=== PATIENT | female | born 1985 | race Caucasian/White ===

== ENCOUNTER 2017-02-26 10:28 | Emergency (ER) | payer OTHER ==
[2017-02-26] MEDS ORDERED: Ondansetron ODT 4 MG TAB ONE (10:45)
[2017-02-26] MEDS ORDERED: Morphine 4 MG/ML Carpuject ONE (11:04)
[2017-02-26] MEDS ORDERED: Promethazine HCl 25 MG/ML VIAL ONE ×2 (11:04→12:03)
[2017-02-26] MEDS ORDERED: Famotidine/PF 20 mg/2ml Vial ONE (11:04)
[2017-02-26 11:22] LABS: Band 40 % (5-11); Hematocrit 48.9 % (36.0-47.0); Mean Platelet Volume 6.1 fL (7.4-10.4); Neutrophil 44 % (42-75); Reactive Lymphocytes 1 % (0-10); Red Blood Cell (RBC) Count 5.63 mill/uL (4.20-5.40); Toxic Granulation SLIGHT; Vacuoles SLIGHT; White Blood Cell (WBC) Count 16.6 thou/uL (4.8-10.8)
[2017-02-26 11:30] LABS: ALT (SGPT) 13 U/L (8-55); AST (SGOT) 15 U/L (5-34); Alkaline Phosphatase 71 U/L (40-150); Anion Gap 15 mmol/L (10-20); BUN (Urea Nitrogen) 18 mg/dL (7.0-18.7); Bilirubin, Total 1.9 mg/dL (0.2-1.2); Calc. Creatinine Clearance 0 mL/min (70-130); Calcium 8.9 mg/dL (7.8-10.44); Carbon Dioxide 22 mmol/L (22-29); Chloride 107 mmol/L (98-107); Estimated GFR-MDRD 86; Globulin 3.3 g/dL (2.4-3.5); Lipase 14 U/L (8-78); Protein, Total 7.6 g/dL (6.0-8.3)
[2017-02-26] MEDS ORDERED: Dicyclomine 20 MG TAB ONE (11:51)
[2017-02-26 12:39] LABS: Bilirubin Negative (Negative); Blood, Urine Negative (Negative); Glucose, Urine (Dipstick) Negative (Negative); Ketone, Urine Negative (Negative); Nitrite Negative (Negative); Protein, Urine (Dipstick) Trace mg/dL (Neg-Trace); Urobilinogen 0.2 mg/dL (0.2-1.0)
== END 2017-02-26 13:57 | disposition home or self-care (01) ==
LOC: SCSER 10:28
DX: K52.9 Noninfective gastroenteritis and colitis, unspecified (principal); Z79.899 Other long term (current) drug therapy
CPT/HCPCS: 80053; 81003; 83690; 84703; 85025; 96361; 96374; 96375; 96376; J2270; J2550; Q0162; S0028